=== PATIENT | male | born 1990 | race Caucasian/White ===

== ENCOUNTER 2019-06-14 20:33 | Emergency (ER) | payer OTHER ==
--- NOTE | 2019-06-14 20:47 | PDOC ---
Rapid Medical Evaluation Time Seen by Provider: 06/14/19 20:44 Medical Evaluation: Allergies Allergy/AdvReac Type Severity Reaction Status Date / Time No Known Allergies Allergy Verified 08/28/14 14:52 06/14/19 20:45 CC: right knee pain x5 days PE: right knee swollen. FROM. Patella is mobile. Orders: xray Patient will proceed to ER for further evaluation. Discharge Disposition - Diagnosis Right knee pain - Referrals - Patient Instructions - Post Discharge Activity
[2019-06-14 20:49] VITALS: BP 136/87; PULSE 75; TEMP 98.1; BMI 36.9
--- NOTE | 2019-06-14 21:52 | PDOC ---
History of Present Illness - General Chief Complaint: Pain Stated Complaint: R/SWOLLEN PATELLA Time Seen by Provider: 06/14/19 20:44 - History of Present Illness Initial Comments: 06/14/19 21:49 28-year-old male without comorbidities presents for evaluation of right knee pain. He has had knee pain for about a year today he was bending down felt a pop on his way back up to standing and has anterior knee pain Past History - Past Medical History Allergies/Adverse Reactions: Allergies Allergy/AdvReac Type Severity Reaction Status Date / Time No Known Allergies Allergy Verified 08/28/14 14:52 Home Medications: Ambulatory Orders NK [No Known Home Medication] 08/28/14 - Psycho Social/Smoking Cessation Hx Smoking History: Never smoked Number of Cigarettes Smoked Daily: 1 Hx Alcohol Use: Yes (social) Drug/Substance Use Hx: No Review of Systems - Review of Systems Musculoskeletal: Yes: Joint Pain *Physical Exam - Vital Signs Last Vital Signs Temp Pulse Resp BP Pulse Ox 98.1 F 75 20 136/87 100 06/14/19 20:47 06/14/19 20:47 06/14/19 20:47 06/14/19 20:47 06/14/19 20:47 - Physical Exam 06/14/19 21:50 Right knee skin color and temperature normal extensor mechanism is intact. Mild anterior swelling. No medial lateral joint line tenderness. Patient was a stability testing. Thigh and calf are soft and nontender neurovascular intact Medical Decision Making - Medical Decision Making 06/14/19 21:51 X-rays of the right knee show no evidence of fracture trauma destructive process weight-bear as tolerated with crutches right knee strain follow-up with Ortho Discharge - Discharge Information Problems reviewed: Yes Clinical Impression/Diagnosis: Right knee pain Condition: Stable Disposition: HOME - Admission No - Follow up/Referral Referrals: Chris Beard MD [Primary Care Provider] - Jomar Cardenas DO [Staff Physician] - - Patient Discharge Instructions Additional Instructions: Tylenol Motrin for pain. Follow-up with orthopedic surgery in 2 to 3 days for further evaluation and treatment options. Follow-up without fail. Return to the emergency room for worsening symptoms. - Post Discharge Activity Work/Back to School Note: Back to Work
== END 2019-06-14 21:56 | disposition home or self-care (01) ==
LOC: JERFT 20:33
DX: S86.211A Strain of muscle(s) and tendon(s) of anterior muscle group at lower leg level, right leg, initial encounter (principal); X50.1XXA Overexertion from prolonged static or awkward postures, initial encounter; Y93.89 Activity, other specified; Y92.89 Other specified places as the place of occurrence of the external cause; Y99.8 Other external cause status
CPT/HCPCS: 73560-TC-RT-FY; 99281-25

== ENCOUNTER 2022-07-29 16:24 | Emergency (ER) | payer OTHER ==
[2022-07-29] MEDS ORDERED: ACETAMINOPHEN 325 MG TABLET (FP) PO ONE (17:11)
[2022-07-29] MEDS ORDERED: MAG HYDROX/AL HYDROX/SIMETH 30 ML UNIT-DOSE CUP PO ONE (17:11)
[2022-07-29] MEDS ORDERED: FAMOTIDINE 20 MG TABLET PO ONE (17:12)
[2022-07-29] MEDS ORDERED: ACETAMINOPHEN 325 MG TABLET (FP) ONE (17:15)
[2022-07-29] MEDS ORDERED: MAG HYDROX/AL HYDROX/SIMETH 30 ML UNIT-DOSE CUP ONE (17:16)
[2022-07-29] MEDS ORDERED: FAMOTIDINE 20 MG TABLET ONE (17:16)
[2022-07-29 17:31] VITALS: BP 121/83; PULSE 99; RESP 18; TEMP 99.1; BMI 38.7
== END 2022-07-29 18:06 | disposition home or self-care (01) ==
LOC: FER 16:24
DX: R51.9 Headache, unspecified (principal); Z20.822 Contact with and (suspected) exposure to COVID-19
CPT/HCPCS: 0241U-QW; 99283-25

== ENCOUNTER 2022-08-24 10:10 | Emergency (ER) | payer OTHER ==
[2022-08-24] MEDS ORDERED: IBUPROFEN 600 MG TABLET (FP) PO ONE ×2 (10:19→10:21)
[2022-08-24 10:23] VITALS: BP 128/90; PULSE 64; RESP 18; TEMP 98; BMI 36.5
== END 2022-08-24 11:24 | disposition home or self-care (01) ==
LOC: FER 10:10
DX: S62.635A Displaced fracture of distal phalanx of left ring finger, initial encounter for closed fracture (principal); M20.012 Mallet finger of left finger(s); W19.XXXA Unspecified fall, initial encounter
CPT/HCPCS: 73140-TC-LT-FY; 99283-25